=== PATIENT | male | born 1995 | race Two or more races ===

== ENCOUNTER 2023-02-02 10:31 | Emergency (ER) | payer OTHER ==
[~2023-02-02] VITALS: Ht 180.3 cm; Wt 99.8 kg
[2023-02-02] MEDS ORDERED: DICLOFENAC SODI75 MG PO (11:29)
== END 2023-02-02 11:46 | disposition home or self-care (01) ==
LOC: ER 10:31
DX: M12.579 Traumatic arthropathy, unspecified ankle and foot (principal)